=== PATIENT | male | born 1990 | race Caucasian/White ===

== ENCOUNTER 2021-08-07 12:00 | Outpatient (RCR) | payer OTHER, SELFPAY | END 2021-08-21 12:10 | disposition home or self-care (01) | LOC: HO.PT 12:00 | PROVIDERS: Visit Provider Student in an Organized Health Care Education/Training Program | DX: M54.16 Radiculopathy, lumbar region (principal); D49.2 Neoplasm of unspecified behavior of bone, soft tissue, and skin | CPT/HCPCS: 97014; 97110; 97112; 97150; 97161; 97164; 97530 ==